=== PATIENT | female | born 1965 | race Caucasian/White ===

== ENCOUNTER 2018-01-08 13:50 | Emergency (ER) | payer OTHER ==
[~2018-01-08] VITALS: Ht 165.1 cm; Wt 71.2 kg
[2018-01-08 13:55] VITALS: BP_SYST 129
[2018-01-08] MEDS ORDERED: LIDOCAINE VISCOUS 2%, 15 ML UDC ONE (14:13)
[2018-01-08] MEDS ORDERED: LIDOCAINE VISCOUS 2%, 15 ML UDC MM ONE (14:30)
[2018-01-08] MEDS ORDERED: LIDOCAINE 1% 10 MG/ML, 20 ML MDV INJ ONE ×2 (14:30)
[2018-01-08] MEDS ORDERED: HYDROcodone/ACETAMIN 7.5-325 MG TAB PO ONE (16:15)
[2018-01-08] MEDS ORDERED: NACL 0.9% 1,000 ML IV ONE ×2 (16:30→18:30)
[2018-01-08 16:58] LABS: BASOPHILS % (AUTO) 0.3 % (0.0-2.0); EOSINOPHILS % (AUTO) 0.2 % (0.0-4.0); HEMOGLOBIN 11.2 g/dL (12.0-16.0); LYMPHOCYTES # (AUTO) 2.1 K/uL (1.0-5.5); LYMPHOCYTES % (AUTO) 14.5 % (20.5-51.5); MEAN CORPUSCULAR HEMOGLOBIN 31 pg (27-31); MEAN CORPUSCULAR HGB CONC 34 % (32-36); MEAN CORPUSCULAR VOLUME 91 fL (79.0-98.0); MONOCYTES # (AUTO) 0.5 K/uL (0.0-1.0); MONOCYTES % (AUTO) 3.6 % (1.7-9.3); NEUTROPHILS % (AUTO) 81.4 % (40.0-70.0); PLATELET COUNT (AUTO) 205 K/uL (130-430); RED BLOOD CELL COUNT(AUTO) 3.63 MIL/uL (4.2-6.2); RED CELL DISTRIBUTION WIDTH 12.2 % (9.0-15.0); WHITE BLOOD COUNT (AUTO) 14.6 K/uL (4.8-10.8)
[2018-01-08 17:00] LABS: CALCIUM 8.5 mg/dL (8.4-11.0); CREATININE 0.85 mg/dL (0.55-1.30); POTASSIUM 3.4 mmol/L (3.5-5.1)
[2018-01-08] MEDS ORDERED: KETOROLAC TROMETHAMINE 30 MG VIAL IVP ONE (17:00)
[2018-01-08 17:05] LABS: ALBUMIN 3.5 g/dL (3.4-4.8); TOTAL BILIRUBIN 0.8 mg/dL (0.0-1.0)
[2018-01-08] MEDS ORDERED: DIPH-TET-PERTUS Vaccine 0.5 ML VIAL (ADACEL) I.M. ONE (18:15)
[2018-01-08] MEDS ORDERED: MORPHINE 2 MG/ML INJ. SYRINGE IVP ONE (19:15)
[2018-01-08 19:58] VITALS: BP_SYST 136
== END 2018-01-08 19:58 | disposition home or self-care (01) ==
LOC: SED 13:50
DX: S31.41XA Laceration without foreign body of vagina and vulva, initial encounter (principal); R03.0 Elevated blood-pressure reading, without diagnosis of hypertension; Z90.710 Acquired absence of both cervix and uterus; W17.2XXA Fall into hole, initial encounter; Y93.89 Activity, other specified; Y92.89 Other specified places as the place of occurrence of the external cause; Y99.8 Other external cause status
CPT/HCPCS: 12002; 36415; 80053; 85025; 90471; 90715; 96361; 96374; 96375; 99284; J1885; J2001 ×2; J2270; J7030